=== PATIENT | male | born 1965 ===

== ENCOUNTER → 2020-03-21 | Outpatient (CLI) | payer BC, OTHER ==
[~2020-03-21] MED LIST: HYDMOR2 PO; KETO10 PO; OXYACE5T PO; PROC10 PO
== END | disposition home or self-care (01) ==
LOC: LAB 18:15 → LAB SHORT 18:15
DX: E11.65 Type 2 diabetes mellitus with hyperglycemia (principal)
CPT/HCPCS: 83036

== ENCOUNTER → 2020-10-04 | Outpatient (CLI) | payer BC, OTHER ==
[2020-10-04 19:22] LABS: Blood Urea Nitrogen 20 mg/dL (8-24); Creatinine, Blood 0.98 mg/dL (0.60-1.20); Glomerular Filtration Rate >60 (60-)
== END | disposition home or self-care (01) ==
LOC: LAB 17:47 → LAB SHORT 17:47
PROVIDERS: Hospitalist
DX: M54.12 Radiculopathy, cervical region (principal)
CPT/HCPCS: 82565; 84520